=== PATIENT | male | born 1980 | race Caucasian/White ===

== ENCOUNTER 2022-07-28 13:33 | Emergency (ER) | payer BC, SELFPAY ==
[2022-07-28 13:39] VITALS: BP 148/113; PULSE 110; RESP 16; TEMP 36.6; O2SAT 99
--- NOTE | 2022-07-28 13:39 | ECG_ITS ---
Measurements Intervals [place] Rate: 78 P: 14 MA: 172 QRS: 18 QRSD: 103 T: 6 QT: 353 QTc: 403 Interpretive Statements SINUS RHYTHM ST ELEVATION IN ANT/HIGH LAT LEADS, PROBABLY EARLY REPOLARIZATION BASELINE ARTIFACT- V1 NORMAL ECG NO PREVIOUS ECG AVAILABLE FOR COMPARISON Electronically Signed On 07-28-2022 14:11:45 CDT by Ac Ding D.O.
--- NOTE | 2022-07-28 13:57 | ED.PSYCH ---
HPI - Psych General Chief Complaint: Recheck/Abnormal Lab/Rx Stated Complaint: blurry vision, high bp Time Seen by Provider: 07/28/22 13:46 History of Present Illness HPI Narrative: Pt presents with heart palpitations, lightheadedness, tingling in fingers and epigastric queeziness for several hours today. Pt says he had a similar episode on his drive here from on Tuesday but it resolved. he is currently out of his 0.5 mg xanax and was taken off his BP meds recently. Pt has follow up appointment with his PCP in 2 days Related Data Allergies Allergy/AdvReac Type Severity Reaction Status Date / Time No Known Allergies Allergy Verified 07/28/22 13:54 Review of Systems Review of Systems: All systems reviewed & are unremarkable except as noted in HPI and below Exam Const: General: healthy appearing Nutritional Appearance: well nourished Orientation/consciousness: patient oriented x3 Limitations: no limitations Eyes: Conjunctivae: conjunctivae normal EOM: EOMs intact bilaterally Neck: Neck: normal visual inspection, no lymphadenopathy and no meningeal signs Chest: Chest palpation & inspection: normal inspection of the chest Resp: Effort & Inspection: normal respiratory effort Auscultation: clear to auscultation bilaterally Cardio: Rate: regular rate Rhythm: regular rhythm GI: GI Palp: Yes Soft to palpation Auscultation: normal bowel sounds Skin: General skin exam: normal color Rashes: no rashes Wounds: no wounds Neuro: General: patient oriented x3, moves all extremities, no meningeal signs and no focal motor deficits Cranial nerves: Yes Nystagmus not present Speech: normal speech Gait exam (Neuro): Normal gait present Extrem: General: normal to inspection and no clubbing, cyanosis or edema Psych: Mental Status: mental status grossly normal Attitude: cooperative Other: somewhat anxious Course Vital Signs Vital signs: Vital Signs Temperature 97.8 F 07/28/22 13:39 Pulse Rate 110 H 07/28/22 13:39 Respiratory Rate 16 07/28/22 13:39 Blood Pressure 148/113 H 07/28/22 13:39 Pulse Oximetry 99 07/28/22 13:39 Oxygen Delivery Room Air 07/28/22 13:39 Temperature 97.8 F 07/28/22 13:39 Pulse Rate 83 07/28/22 15:06 Respiratory Rate 18 07/28/22 15:06 Blood Pressure 149/96 H 07/28/22 15:06 Pulse Oximetry 95 07/28/22 15:06 Oxygen Delivery Room Air 07/28/22 13:39 MDM - Psych Lab Data Result diagrams: 07/28/22 13:53 07/28/22 13:53 Labs: Lab Results 07/28/22 07/28/22 07/28/22 Range/Units 13:53 13:53 13:53 WBC 9.8 (4.5-10.0) K/mm3 RBC 5.22 (4.6-6.20) M/mm3 Hgb 16.3 (14.0-18.0) g/dL Hct 47.0 (42.0-52.0) % MCV 90.0 (80-100) fl MCH 31.2 (26-34) pg MCHC 34.7 (32-36) g/dl RDW 12.6 (11.5-14.5) % Plt Count 226 (150-375) k/mm3 MPV 11.3 H (7.4-10.4) fl Immature Gran % (Auto) 0.2 (0-0.5) % Neut % (Auto) 75.6 H (45.5-73.1) % Lymph % (Auto) 18.4 (18.3-44.2) % [facility] % (Auto) 5.1 (2.6-8.5) % Eos % (Auto) 0.2 (0-4.4) % Baso % (Auto) 0.5 (0.2-1.2) % Lymph # (Auto) 1.80 (0.9-3.2) K/mm3 [facility] # (Auto) 0.5 (0.1-0.6) K/mm3 Eos # (Auto) 0.0 (0-0.3) K/mm3 Baso # (Auto) 0.1 (0.0-0.1) K/mm3 Abs Immat Gran (auto) 0.02 (0.00-0.031) K/mm3 Absolute Neuts (auto) 7.4 H (1.3-6.7) K/mm3 Absolute Nucleated RBC 0.0 (0.0-0.012) K/mm3 Nucleated RBC % 0.0 (0.0-0.2) % PT 13.4 (11.1-14.7) Seconds INR 1.1 APTT 32.9 (22.3-36.8) SECONDS Sodium 141 (137-145) mmol/L Potassium 4.4 (3.4-5.0) mmol/L Chloride 104 (98-107) mmol/L Carbon Dioxide 19 L (22-30) mmol/L Anion Gap 18 H (8-16) mmol/L BUN 13 (9-20) mg/dL Creatinine 1.10 (0.7-1.3) mg/dL Estim Creat Clear Calc 114 ml/min Estimated GFR > 60 (59 - ) Glucose 106 (65-110) mg/dL Calcium 9.6 (8.4-10.2) mg/dL Total Bilirubin 1.0 (0.2-1.
[2022-07-28 14:00] LABS: Basophils Absolute Auto 0.1 K/mm3 (0.0-0.1); Basophils Percent Auto 0.5 % (0.2-1.2); Eosinophils Percent Auto 0.2 % (0-4.4); Hemoglobin 16.3 g/dL (14.0-18.0); Immature Granulocyte Absolute 0.02 K/mm3 (0.00-0.031); Immature Granulocyte Percent A 0.2 % (0-0.5); Lymphocytes Percent Auto 18.4 % (18.3-44.2); Mean Corpuscular HGB Conc 34.7 g/dl (32-36); Mean Corpuscular Hemoglobin 31.2 pg (26-34); Mean Platelet Volume 11.3 fl (7.4-10.4); Monocytes Absolute Auto 0.5 K/mm3 (0.1-0.6); Monocytes Percent Auto 5.1 % (2.6-8.5); Neutrophils Absolute Auto 7.4 K/mm3 (1.3-6.7); Neutrophils Percent Auto 75.6 % (45.5-73.1); Platelet Count Result 226 k/mm3 (150-375); Red Blood Count 5.22 M/mm3 (4.6-6.20); Red Cell Distribution Width 12.6 % (11.5-14.5); White Blood Count 9.8 K/mm3 (4.5-10.0)
[2022-07-28] MEDS: LORazepam INJ (*CRX) 2 MG/ML VIAL 1 MG IV PUSH (14:01)
[2022-07-28 14:04] VITALS: BP 148/103; PULSE 89; RESP 18; O2SAT 98
[2022-07-28 14:12] LABS: INR 1.1; Prothrombin Time 13.4 Seconds (11.1-14.7)
[2022-07-28 14:13] LABS: Partial Thromboplastin Time 32.9 SECONDS (22.3-36.8)
[2022-07-28 14:15] LABS: Alanine Aminotransferase 47 U/L (6-50); Alkaline Phosphatase 112 U/L (38-126); Anion Gap 18 mmol/L (8-16); Aspartate Amino Transferase 31 U/L (17-59); Blood Urea Nitrogen 13 mg/dL (9-20); Calcium 9.6 mg/dL (8.4-10.2); Carbon Dioxide 19 mmol/L (22-30); Chloride 104 mmol/L (98-107); Estimated CRCL calculation 114 ml/min; Estimated Glomerular Filt Rate > 60; Glucose 106 mg/dL (65-110); Lipase 113 U/L (23-300); Potassium 4.4 mmol/L (3.4-5.0); Sodium 141 mmol/L (137-145)
[2022-07-28 14:26] LABS: Troponin I < 0.012 ng/mL (0.000-0.034)
[2022-07-28 15:06] VITALS: BP 149/96; PULSE 83; RESP 18; O2SAT 95
== END 2022-07-28 15:21 | disposition home or self-care (01) ==
PROVIDERS: Emergency Medicine; Emergency Provider Emergency Medicine
DX: F41.0 Panic disorder [episodic paroxysmal anxiety] (principal)
CPT/HCPCS: 36415; 80053; 83690; 84484; 85025; 85610; 85730; 93005; 96374; 99284; J2060